=== PATIENT | male | born 1975 | race Caucasian/White ===

== ENCOUNTER 2018-07-07 09:28 | Emergency (ER) | payer BC, MEDICAID ==
[~2018-07-07] VITALS: Ht 175.3 cm; Wt 77.1 kg
[2018-07-07 09:30] VITALS: BP_SYST 126
[2018-07-07] MEDS ORDERED: ACETAMINOPHEN 500 MG TABLET PO ONE (10:30)
[2018-07-07 12:55] VITALS: BP_SYST 126
== END 2018-07-07 12:55 | disposition home or self-care (01) ==
LOC: SED 09:28
DX: M25.561 Pain in right knee (principal)
CPT/HCPCS: 73564; 93971; 99284

== ENCOUNTER 2020-09-17 15:23 | Emergency (ER) | payer MEDICAID ==
[~2020-09-17] VITALS: Ht 175.3 cm; Wt 77.1 kg
[2020-09-17 16:05] VITALS: BP_SYST 116
[2020-09-17] MEDS ORDERED: IBUP-1971 PO (16:40)
[2020-09-17] MEDS ORDERED: HYDR-3917 PO ×4 (16:40→16:46)
[2020-09-17 16:55] VITALS: BP_SYST 119
== END 2020-09-17 16:15 | disposition home or self-care (01) ==
LOC: SED 15:23
DX: S93.402A Sprain of unspecified ligament of left ankle, initial encounter (principal); X50.1XXA Overexertion from prolonged static or awkward postures, initial encounter; Y93.89 Activity, other specified; Y92.89 Other specified places as the place of occurrence of the external cause; Y99.8 Other external cause status
CPT/HCPCS: 99283